=== PATIENT | female | born 1955 | race African-American/Black ===

== ENCOUNTER 2018-12-24 05:31 | Emergency (ER) | payer OTHER ==
[2018-12-24] MEDS ORDERED: IBUPROFEN 600 MG TABLET PO ONE (07:14)
--- NOTE | 2018-12-24 07:14 | ER Document Report ---
ED Extremity Problem, Lower - General Chief Complaint: Knee Injury Stated Complaint: LEFT KNEE INJURY Time Seen by Provider: 12/24/18 07:08 Primary Care Provider: YANELI HERNANDEZ MD [ACTIVE STAFF] - Follow up in 3-5 days TRAVEL OUTSIDE OF THE [place] IN LAST 30 DAYS: No - HPI Notes: Patient is a 63-year-old female that presents to the emergency department for chief complaint of left knee injury. Patient states just prior to coming to the ER she tripped over her foot and fell forward onto her left knee. She denies hitting her head or any lightheadedness and loss of consciousness. She states she did not fall on outstretched hands and all of her weight came down on her left knee. She states it is severely painful in the knee and is worse with any kind of movement or weightbearing. She denies relieving factors. She has not had any medication for pain. She denies history of surgery or injury on this knee previously. She denies any numbness. Past Medical History: Negative Past Surgical History: Hysterectomy Social History: Denies drugs alcohol and tobacco Family History: Reviewed and noncontributory for presenting illness Allergies: Reviewed, see documented allergy list. REVIEW OF SYSTEMS: CONSTITUTIONAL : No fever No chills No diaphoresis No recent illness EENT: No vision changes No congestion No sore throat CARDIOVASCULAR: No chest pain No palpitations RESPIRATORY: No shortness of breath No cough No difficulty breathing GASTROINTESTINAL: No abdominal pain No nausea No vomiting No diarrhea GENITOURINARY: No dysuria No hematuria No difficulty urinating MUSCULOSKELETAL: No back pain Left knee pain No arm pain SKIN: No rashes No lesions LYMPHATIC: No swollen, enlarged glands. NEUROLOGICAL: No lightheadedness No headache No weakness No paresthesias PSYCHIATRIC: No anxiety No depression PHYSICAL EXAMINATION: Vital signs reviewed, nursing noted reviewed. GENERAL: Well-appearing, well-nourished and in no acute distress. HEAD: Atraumatic, normocephalic. EYES: Eyes appear normal, extraocular movements intact, sclera anicteric, conjunctiva are normal. ENT: nares patent, oropharynx clear without exudates. Moist mucous membranes. NECK: Normal range of motion, supple without lymphadenopathy LUNGS: Breath sounds clear to auscultation bilaterally and equal. No wheezes rales or rhonchi. HEART: Regular rate and rhythm without murmurs ABDOMEN: Soft, nontender, normoactive bowel sounds. No rebound, guarding, or rigidity. No masses appreciated. EXTREMITIES: Large left knee effusion and soft tissue edema, tenderness to palpation over patella and quadriceps tendon. No patellar ligament tenderness. Decreased range of motion of the left knee. Pain and inability to extend left knee. No knee laxity. NEUROLOGICAL: No focal neurological deficits. Moves all extremities spontaneously Motor and sensory grossly intact on exam. PSYCH: Normal mood, normal affect. SKIN: Warm, Dry, normal turgor, small abrasion over the anterior left knee - Related Data Allergies/Adverse Reactions: No Known Allergies Allergy (Verified 12/24/18 07:38) Past Medical History - Social History Smoking Status: Never Smoker Family History: Reviewed & Not Pertinent Course - Re-evaluation Re-evalutation: 12/24/18 07:14 Vitals reviewed. Nursing notes reviewed. Patient given ibuprofen for pain. X- ray shows complete separation of patella with disruption of the extensor mechanism. We do not currently orthopedic surgery telephone cleaner however patient will be placed in a knee immobilizer and given crutches as well as orthopedic referral. She did not wish to have anything stronger than ibuprofen for pain in the emergency room but will be provided a Dutch John prescription for home. She was counseled on rest, ice, elevation and use of the crutches and brace. She has no other apparent injuries from her fall. She is stable at discharge 12/24/18 08:32 Knee X-Ray 12/24/18 05:34 IMPRESSION: Comminuted displaced patellar fracture. - Diagnostic Test Radiology reviewed: Image reviewed Discharge - Discharge Clinical Impression: Patellar fracture Qualifiers: Encounter type: initial encounter Fracture type: closed Fracture morphology: comminuted Fracture alignment: displaced Laterality: left Qualified Code(s): S82.042A - Displaced comminuted fracture of left patella, initial encounter for closed fracture Condition: Stable Disposition: HOME, SELF-CARE Instructions: Fractured Patella ([facility]), Ice & Elevation ([facility]), Knee Immobilizing Splint ([facility]) Additional Instructions: Please return to the emergency department if you have any worsening, or concern of your symptoms. Please return to the emergency department if you develop chest pain, difficulty breathing, severe abdominal pain, or ongoing vomiting. Please follow-up with your primary care physician in 2-3 days and any other recommended physicians. If prescribed, take all medications as directed. If you have any questions or concerns do not hesitate to return the emergency department for evaluation. Keep your left knee elevated as often as possible Apply ice to the left knee for 15 to 20 minutes at a time 3-4 times daily to help with swelling Take Tylenol and ibuprofen as needed for pain. If these medications are not enough to control your pain then take the prescription Dutch John Call the orthopedic surgeon first thing Wednesday morning to establish follow-up appointment Prescriptions: Hydrocodone/Acetaminophen [Dutch John 5-325 mg Tablet] 1 tab PO Q6 #10 tablet Referrals: YANELI HERNANDEZ MD [ACTIVE STAFF] - Follow up in 3-5 days
--- NOTE | 2018-12-24 08:21 | RADIOLOGY REPORT (SQ) ---
EXAM DESCRIPTION: KNEE LEFT 4 VIEW COMPLETED DATE/TIME: 12/24/2018 7:33 am REASON FOR STUDY: fall, pain, nonweight bearing COMPARISON: None. NUMBER OF VIEWS: Four views left knee LIMITATIONS: None. FINDINGS: Patellar fracture. Single large upper half fragment with comminution of the lower pole fr agments. Separation between the upper and lower poles of approximately 2 cm. Sizable joint effusion . Other bones intact. OTHER: No other significant finding. IMPRESSION: Comminuted displaced patellar fracture. TECHNICAL DOCUMENTATION: JOB ID: [id number] Reading location - IP/workstation name: [email or web address]
[2018-12-24 08:55] VITALS: BP 138/84
== END 2018-12-24 08:53 | disposition home or self-care (01) ==
LOC: ER 05:31
DX: S82.042A Displaced comminuted fracture of left patella, initial encounter for closed fracture (principal); W01.0XXA Fall on same level from slipping, tripping and stumbling without subsequent striking against object, initial encounter
CPT/HCPCS: 99283; 73564; L1830

== ENCOUNTER 2019-01-02 10:36 | Day surgery (SDC) | payer OTHER ==
[~2019-01-02 10:36] MED LIST: ACETAMINOPHEN 0 MG/0 ML RTUPB IV ONE; CEFAZOLIN 2 GM/D5W RTU 2 GM/50 ML RTUPB IV PRN; DEXAMETHASONE SOD PHOSPHATE INJ 4 MG/1 ML VIAL ONE; FENTANYL CITRATE INJ/PF 100 MCG/2 ML AMPUL ONE; HYDROMORPHONE HCL INJ/PF 2 MG/ML AMPULE ONE; MIDAZOLAM 2 MG/2 ML INJ ONE; ONDANSETRON HCL INJ/PF 4 MG/2 ML SDV ONE; PROPOFOL INJ 200 MG/20 ML VIAL IV ONE
[2019-01-02 11:19] LABS: AMORPHOUS SEDIMENT,URINE TRACE /HPF; APPEARANCE,URINE CLEAR; BILIRUBIN,URINE NEGATIVE (NEGATIVE); COLOR,URINE YELLOW; GLUCOSE, URINE NEGATIVE (NEGATIVE); KETONES,URINE NEGATIVE (NEGATIVE); LEUKOCYTE ESTERASE,URINE NEGATIVE (NEGATIVE); NITRITE,URINE NEGATIVE (NEGATIVE); PROTEIN,URINE NEGATIVE (NEGATIVE); URINE SPECIFIC GRAVITY 1.025; UROBILINOGEN,URINE NEGATIVE mg/dL (<2.0)
[2019-01-02 11:28] LABS: HEMATOCRIT 33.9 % (36.0-47.0); HEMOGLOBIN 11.1 g/dL (12.0-15.5); MEAN CORPUSCULAR HEMOGLOBIN 27.4 pg (27.0-33.4); MEAN CORPUSCULAR HGB CONC 32.8 g/dL (32.0-36.0); MEAN CORPUSCULAR VOLUME 83 fl (80-97); PLATELET COUNT 338 10^3/uL (150-450); RED BLOOD COUNT 4.07 10^6/uL (3.72-5.28); RED CELL DISTRIBUTION WIDTH 14.6 % (11.5-14.0); WHITE BLOOD COUNT 4.3 10^3/uL (4.0-10.5)
--- NOTE | 2019-01-02 11:30 | RADIOLOGY REPORT (SQ) ---
EXAM DESCRIPTION: CHEST SINGLE VIEW COMPLETED DATE/TIME: 01/02/2019 11:20 am REASON FOR STUDY: preop COMPARISON: None. EXAM PARAMETERS: NUMBER OF VIEWS: One view. TECHNIQUE: Single frontal radiographic view of the chest acquired. RADIATION DOSE: NA LIMITATIONS: None. FINDINGS: LUNGS AND PLEURA: No opacities, masses or pneumothorax. No pleural effusion. MEDIASTINUM AND HILAR STRUCTURES: No masses. Contour normal. HEART AND VASCULAR STRUCTURES: Heart normal in size. Normal vasculature. BONES: No acute findings. HARDWARE: None in the chest. OTHER: No other significant finding. IMPRESSION: NO ACUTE RADIOGRAPHIC FINDING IN THE CHEST. TECHNICAL DOCUMENTATION: JOB ID: [id number] [employer]- All Rights Reserved Reading location - IP/workstation name: [email or web address]
[2019-01-02 11:46] LABS: ANION GAP 10 (5-19); BLOOD UREA NITROGEN 20 mg/dL (7-20); CALCIUM 9.8 mg/dL (8.4-10.2); CARBON DIOXIDE 27 mmol/L (22-30); CHLORIDE 105 mmol/L (98-107); GLUCOSE 90 mg/dL (75-110); POTASSIUM 3.9 mmol/L (3.6-5.0); SODIUM 141.9 mmol/L (137-145)
[2019-01-02] MEDS ORDERED: CEFAZOLIN 2 GM/D5W RTU 2 GM/50 ML RTUPB IV ONE (11:46)
[2019-01-02] MEDS ORDERED: BUPIVACAINE HCL 0.25% /EPINEPHRINE INJ/PF 30 ML SDV ONE (12:44)
[2019-01-02] MEDS ORDERED: ONDANSETRON HCL INJ/PF 4 MG/2 ML SDV IV PRN (13:10)
[2019-01-02] MEDS ORDERED: OXYCODONE-ACETAMINOPHEN 5-325 MG TABLET PO PRN ×2 (13:10)
[2019-01-02] MEDS ORDERED: DIPHENHYDRAMINE HCL 50 MG/ML VIAL IV PRN (13:10)
[2019-01-02] MEDS ORDERED: MORPHINE SULFATE 10 MG/ML INJ IV PRN (13:10)
[2019-01-02] MEDS ORDERED: PROMETHAZINE HCL INJ 25 MG/1 ML VIAL IV PRN (13:10)
[2019-01-02] MEDS ORDERED: MEPERIDINE HCL/PF INJ 25 MG/1 ML DISP.SYRIN IV PRN (13:10)
[2019-01-02] MEDS ORDERED: FENTANYL CITRATE INJ/PF 100 MCG/2 ML AMPUL IV PRN ×2 (13:10)
[2019-01-02] MEDS ORDERED: KETOROLAC TROMETHAMINE 60 MG/2 ML SDV ONE (13:34)
--- NOTE | 2019-01-02 13:45 | Discharge Summary ---
Discharge Summary (SDC) - Discharge Final Diagnosis: Left patella fracture Date of Surgery: 01/02/19 Discharge Date: 01/02/19 Condition: Good Treatment or Instructions: Weightbearing as tolerated ambulation in the knee immobilizer. Keep the compressive wrap in place until Wednesday. This can need to be unwrapped or cut. Underneath is an OpSite dressing that can remain in place until you return to see me in the office. Prescriptions: Oxycodone HCl/Acetaminophen [Percocet 5-325 mg Tablet] 1 tab PO Q6 PRN #40 tab PRN Reason: Referrals: GAYATRI BOWMAN FNP [Primary Care Provider] - Discharge Diet: As Tolerated, Regular Respiratory Treatments at Home: Deep Breathing/Coughing Discharge Activity: Balance Activity w/Rest, No tub bath Home Care Assistance: None Needed Report the Following to Your Physician Immediately: Shortness of Breath, Fever over 101 Degrees, Drainage-Foul Smelling
--- NOTE | 2019-01-02 13:47 | Operative Report ---
Operative Report DATE OF SURGERY: 01/02/19 PREOPERATIVE DIAGNOSIS: Left patella fracture OPERATION: Open reduction internal fixation left patella fracture SURGEON: YANELI HERNANDEZ ANESTHESIA: GA ESTIMATED BLOOD LOSS: 25 PROCEDURE: With the patient supine and operative table left lower extremities prepped and draped in sterile fashion. Limb is elevated for exsanguination and tourniquet inflated to 280 torr. A longitudinal incision was made over the midline of the patella extending just proximally distally to the patella itself. The wound is irrigated and the hematoma is evacuated. Surprisingly there is a fairly substantial piece of bone distally and a decision was made to proceed with a ryxleu-cm-quxoj construct. 2.062 K wires were placed in parallel fashion distally to proximally. The fracture reduction is checked fluoroscopically and felt to be adequate. Subsequently #5 FiberWire was used to perform htqoqi-tu-qajbc retention suture. Subsequently a second #5 FiberWire was used in a circumferential fashion to bring in the comminuted bone fragments that are anterior and medial and lateral to the patella. #2 FiberWire was then used to repair the medial lateral retinaculum. The tourniquet is deflated. Hemostasis obtained with electrocautery. The wound was closed in layers interrupted Vicryl followed by dipti. A sterile compressive dressing and knee immobilizer appli ed and the patient's return to the PACU in satisfactory condition.
[2019-01-02] MEDS ORDERED: FENTANYL CITRATE INJ/PF 100 MCG/2 ML AMPUL ONE (14:15)
[2019-01-02] MEDS: FENTANYL CITRATE INJ/PF 100 MCG/2 ML AMPUL IV PRN ×2 (14:16→14:25)
--- NOTE | 2019-01-02 14:36 | RADIOLOGY REPORT (SQ) ---
EXAM DESCRIPTION: KNEE LEFT 2 VIEWS; NO CHG FLUORO COMPLETED DATE/TIME: 01/02/2019 2:14 pm REASON FOR STUDY: ORIF LEFT PATELLA S82.091D OTH FRACTURE OF RIGHT PATELLA, SUBS FOR CLOS FX W R COMPARISON: 12/24/2018. FLUOROSCOPY TIME: 0.2 minutes. 2 images saved to PACS. TECHNIQUE: Intra-operative images acquired during surgical procedure to evaluate progress. NUMBER OF IMAGES: 2 images. LIMITATIONS: None. FINDINGS: Images of the patella acquired during fixation. IMPRESSION: IMAGE(S) OBTAINED DURING PROCEDURE. COMMENT: Quality ID [id number]: Final reports for procedures using fluoroscopy that document radiation exp osure indices, or exposure time and number of fluorographic images (if radiation exposure indices are not available) Please consult full operative report of the attending physician for description of the procedure. TECHNICAL DOCUMENTATION: JOB ID: [id number] [employer]- All Rights Reserved Reading location - IP/workstation name: [email or web address]
--- NOTE | 2019-01-02 14:36 | RADIOLOGY REPORT (SQ) ---
EXAM DESCRIPTION: KNEE LEFT 2 VIEWS; NO CHG FLUORO COMPLETED DATE/TIME: 01/02/2019 2:14 pm REASON FOR STUDY: ORIF LEFT PATELLA S82.091D OTH FRACTURE OF RIGHT PATELLA, SUBS FOR CLOS FX W R COMPARISON: 12/24/2018. FLUOROSCOPY TIME: 0.2 minutes. 2 images saved to PACS. TECHNIQUE: Intra-operative images acquired during surgical procedure to evaluate progress. NUMBER OF IMAGES: 2 images. LIMITATIONS: None. FINDINGS: Images of the patella acquired during fixation. IMPRESSION: IMAGE(S) OBTAINED DURING PROCEDURE. COMMENT: Quality ID 145: Final reports for procedures using fluoroscopy that document radiation exp osure indices, or exposure time and number of fluorographic images (if radiation exposure indices are not available) Please consult full operative report of the attending physician for description of the procedure. TECHNICAL DOCUMENTATION: JOB ID: [id number] [employer]- All Rights Reserved Reading location - IP/workstation name: [email or web address]
[2019-01-02] MEDS ORDERED: ONDANSETRON 4 MG TAB.RAPDIS ONE (17:32)
[2019-01-02 18:43] VITALS: BP 137/88
--- NOTE | 2019-01-04 10:23 | EKG REPORT ---
SEVERITY:- ABNORMAL ECG - SINUS RHYTHM PROBABLE LEFT ATRIAL ABNORMALITY PROBABLE LEFT VENTRICULAR HYPERTROPHY : Confirmed by: Sanjay Adair 04-Jan-2019 10:23:00
== END 2019-01-02 18:35 | disposition home or self-care (01) ==
LOC: OROUT 10:36
PROVIDERS: ATTEND Orthopaedic Surgery
DX: S82.002A Unspecified fracture of left patella, initial encounter for closed fracture (principal); X58.XXXA Exposure to other specified factors, initial encounter; Z01.818 Encounter for other preprocedural examination
CPT/HCPCS: 36415; 85027; 80048; 81001; 71045; 73560; 93005; 93010; 27524; L1830; C1713; J2250; J3490; J1100; J1885; S0119; J3010; J1170; J2405; J2704; J0690; 01392; J0131

== ENCOUNTER 2019-04-28 21:53 | Emergency (ER) | payer OTHER ==
--- NOTE | 2019-04-28 23:03 | EKG REPORT ---
SEVERITY:- ABNORMAL ECG - SINUS RHYTHM PROBABLE LEFT ATRIAL ABNORMALITY LEFT VENTRICULAR HYPERTROPHY : Confirmed by: Brooklyn Cortes MD 28-Apr-2019 23:02:59
[2019-04-29] MEDS ORDERED: ASPIRIN 81 MG TABLET, CHEWABLE PO ONE (00:23)
[2019-04-29] MEDS ORDERED: ASPIRIN 81 MG TABLET, CHEWABLE ONE (00:28)
[2019-04-29 00:36] LABS: ABSOLUTE BASOPHILS # (AUTO) 0.1 10^3/uL (0.0-0.2); ABSOLUTE EOSINOPHILS # (AUTO) 0.1 10^3/uL (0.0-0.6); ABSOLUTE MONOCYTES (AUTO) 0.4 10^3/uL (0.1-1.4); ABSOLUTE NEUT (AUTO) 2.8 10^3/uL (1.7-8.2); BASOPHILS % (AUTO) 1.1 % (0-2); EOSINOPHILS % (AUTO) 1.6 % (0-6); HEMATOCRIT 37.2 % (36.0-47.0); HEMOGLOBIN 12.4 g/dL (12.0-15.5); LYMPHOCYTES % (AUTO) 36.4 % (13-45); MEAN CORPUSCULAR HEMOGLOBIN 27.6 pg (27.0-33.4); MEAN CORPUSCULAR HGB CONC 33.4 g/dL (32.0-36.0); MEAN CORPUSCULAR VOLUME 83 fl (80-97); MONOCYTES % (AUTO) 7.8 % (3-13); PLATELET COUNT 298 10^3/uL (150-450); RED CELL DISTRIBUTION WIDTH 14.6 % (11.5-14.0); SEGMENTED NEUTROPHILS % (AUTO) 53.1 % (42-78); TOTAL CELLS COUNTED % (AUTO) 100 %; WHITE BLOOD COUNT 5.4 10^3/uL (4.0-10.5)
--- NOTE | 2019-04-29 00:38 | ER Document Report ---
ED Cardiac <RADHA AVILEZ - Last Filed: 04/29/19 11:25> - General TRAVEL OUTSIDE OF THE [place] IN LAST 30 DAYS: No <YULY GALE - Last Filed: 04/29/19 15:39> - General Chief Complaint: Chest Pain Stated Complaint: BLOOD PRESSURE ISSUE Time Seen by Provider: 04/28/19 23:55 Primary Care Provider: GAYATRI BOWMAN FNP [NURSE PRACTITIONER] - Follow up as needed Notes: Patient is a 63-year-old female who presents the emergency department with a chief complaint of chest pain. She states that her pain started shortly prior to arrival to the emergency department. She was sleeping and and stated that she felt some tightness in her chest and in her throat. She states that she ate some greens and ate chicken tonight. She has not felt this ever before. She denies any past medical history other than knee surgery. Patient denies any past medical history. She denies any smoking. (YULY GALE) - Related Data Allergies/Adverse Reactions: No Known Allergies Allergy (Verified 12/24/18 07:38) Past Medical History - Social History Smoking Status: Never Smoker Frequency of alcohol use: None Drug Abuse: None Family History: Reviewed & Not Pertinent - Past Medical History Cardiac Medical History: Denies: Hx Coronary Artery Disease, Hx Heart Attack, Hx Hypertension Pulmonary Medical History: Denies: Hx Asthma, Hx Bronchitis, Hx COPD, Hx Pneumonia Neurological Medical History: Denies: Hx Cerebrovascular Accident, Hx Seizures Renal/ Medical History: Denies: Hx Peritoneal Dialysis Musculoskeletal Medical History: Denies Hx Arthritis - Immunizations Hx Diphtheria, Pertussis, Tetanus Vaccination: Yes <YULY GALE - Last Filed: 04/29/19 15:39> Review of Systems <YULY GALE - Last Filed: 04/29/19 15:39> - Review of Systems Notes: REVIEW OF SYSTEMS: CONSTITUTIONAL : Denies recent illness. Denies recent unintentional weight loss. Denies fever, chills, or sweats. EENT: Denies eye, ear, throat, or mouth pain, discharge, or symptoms. Denies nasal or sinus congestion. CARDIOVASCULAR: See HPI. RESPIRATORY: Denies shortness of breath, cough, congestion, difficulty breathing, or wheezing. GASTROINTESTINAL: Denies nausea, vomiting, and diarrhea. Denies abdominal pain. Denies constipation. GENITOURINARY: Denies difficulty urinating, burning, blood in urine, urgency or frequency. MUSCULOSKELETAL: Denies neck and back pain. Denies joint pain or swelling. SKIN: Denies rash, itchiness, or lesions HEMATOLOGIC : Denies easy bruising or bleeding. LYMPHATIC: Denies swollen, painful, enlarged glands. NEUROLOGICAL: Denies no numbness or tingling denies weakness. Denies headache. Denies altered mental status. Denies alteration in speech. PSYCHIATRIC: Denies stress, anxiety, alteration in sleep patterns, or depression. All other systems reviewed and negative. (YULY GALE) Physical Exam <YULY GALE - Last Filed: 04/29/19 15:39> - Vital signs Vitals: Temp Pulse Resp BP Pulse Ox 98.5 F 78 20 165/110 H 99 04/28/19 22:15 04/28/19 22:15 04/28/19 22:15 04/28/19 22:15 04/28/19 22:15 - Notes Notes: PHYSICAL EXAMINATION: GENERAL: Appears well, healthy, well-nourished, no acute distress. HEAD: Normocephalic, atraumatic. EYES: PERRL, conjunctiva normal, all extraocular movements intact, sclera nonicteric ENT: Moist mucous membranes. NECK: Supple, no noticeable swelling, redness, rash. Normal range of motion. LUNGS: Equal breath sounds bilaterally and clear to auscultation. No wheezes rales or rhonchi. CARDIOVASCULAR: S1-S2, regular rate, regular rhythm. Radial pulses 2+, normal. ABDOMEN: Normoactive bowel sounds. Soft, nontender, no guarding, no rebound tenderness, and no masses palpated. EXTREMITIES: Normal strength and range of motion, no pitting or edema. No cyanosis. NEUROLOGICAL: Moves all extremities upon command. Strength 5/5 in all extremities. PSYCH: Normal mood, normal affect. SKIN: Warm, dry. No rash, lesions, ulcerations noted. Normal skin turgor. (YULY GALE) Course - Laboratory Result Diagrams: 04/29/19 05:55 04/29/19 00:17 <RADHA AVILEZ - Last Filed: 04/29/19 11:25> - Laboratory Result Diagrams: 04/29/19 05:55 04/29/19 00:17 <YULY GALE - Last Filed: 04/29/19 15:39> - Re-evaluation Re-evalutation: 04/29/19 11:25 Patient's vital signs stable, patient stable for transfer at this time (RADHA AVILEZ) 04/29/19 02:05 Hematology is unremarkable at this time. Her chemistries are unremarkable. Her troponin is 0.105. Lipase is normal. Will await second troponin. Patient states that she does not have chest pain anymore. Chest x-ray was normal. No pneumothorax, cardiomegaly, or pneumonia noted. 04/29/19 05:20 Patient's second troponin is 0.286. Patient denies chest pain at this time. I spoke with Dr. Wahl the hospitalist and he is requesting that I speak with Dr. Cortes. I will call Dr. Cortes. 04/29/19 05:[address] Cortes, the surveillance technician and he is recommending transfer. 04/29/19 05:28 Spoke with [facility] transfer center. Awaiting call back from hospitalist. 04/29/19 05:40 Received a call back from Dr. Kohli. [facility]. 04/29/19 08:20 Bedside report given to Radha Avilez NP. She will evaluate the patient prior to transfer. Still remains chest pain-free. Heparin drip infusing at this time. (BALJINDERYULY Bola) - Vital Signs Vital signs: Temp Pulse Resp BP Pulse Ox 98.1 F 72 17 129/82 H 100 04/29/19 11:49 04/29/19 11:49 04/29/19 11:49 04/29/19 11:49 04/29/19 11:49 - Laboratory Laboratory results interpreted by me: 04/29/19 04/29/19 04/29/19 00:17 00:17 05:55 RDW 14.6 H 14.9 H Lymph % (Auto) 49.8 H Seg Neutrophils % 38.5 L Carbon Dioxide 31 H Urine Blood 04/29/19 05:55 RDW Lymph % (Auto) Seg Neutrophils % Carbon Dioxide Urine Blood SMALL H Discharge <RADHA AVILEZ - Last Filed: 04/29/19 11:25> <BALJINDERYULY M - Last Filed: 04/29/19 15:39> - Discharge Clinical Impression: NSTEMI (non-ST elevated myocardial infarction) Chest pain Qualifiers: Chest pain type: unspecified Qualified Code(s): R07.9 - Chest pain, unspecified Condition: Stable Disposition: [facility] Referrals: GAYATRI BOWMAN FNP [NURSE PRACTITIONER] - Follow up as needed
[2019-04-29 00:56] LABS: ALBUMIN 4.7 g/dL (3.5-5.0); ALKALINE PHOSPHATASE 66 U/L (38-126); ANION GAP 9 (5-19); ASPARTATE AMINO TRANSFERASE 21 U/L (14-36); BILIRUBIN,DIRECT 0.1 mg/dL (0.0-0.4); BILIRUBIN,TOTAL 0.4 mg/dL (0.2-1.3); BLOOD UREA NITROGEN 18 mg/dL (7-20); CALCIUM 9.9 mg/dL (8.4-10.2); CARBON DIOXIDE 31 mmol/L (22-30); CHLORIDE 102 mmol/L (98-107); CREATINE KINASE 58 U/L (30-135); GLUCOSE 100 mg/dL (75-110)
[2019-04-29 01:20] LABS: CREATINE KINASE MB 0.73 ng/mL (<4.55)
[2019-04-29 01:22] LABS: TROPONIN I 0.105 ng/mL
--- NOTE | 2019-04-29 01:24 | RADIOLOGY REPORT (SQ) ---
XR CHEST 2 VIEWS EXAM DATE: 04/29/2019 12:00 AM CDT HISTORY: Chest pain. COMPARISON: None. FINDINGS: The heart size is within normal limits. No consolidation, pleural effusion, or pneumothorax is seen. The bony thorax is intact. IMPRESSION: No evidence of acute cardiopulmonary disease.
[2019-04-29] MEDS ORDERED: HEPARIN SOD (PORCINE) 1,000 UNIT/ML 10 ML VIAL IV ONE (05:37)
[2019-04-29] MEDS ORDERED: HEPARIN SODIUM,PORCINE/D5W 25,000 UNIT/250 ML RTUINJ IV PRN (05:37)
[2019-04-29] MEDS ORDERED: HEPARIN SODIUM,PORCINE/D5W 25,000 UNIT/250 ML RTUINJ IV ONE (05:48)
[2019-04-29 06:13] LABS: ABSOLUTE BASOPHILS # (AUTO) 0.1 10^3/uL (0.0-0.2); ABSOLUTE EOSINOPHILS # (AUTO) 0.1 10^3/uL (0.0-0.6); ABSOLUTE LYMPHOCYTES (AUTO) 2.6 10^3/uL (0.5-4.7); ABSOLUTE MONOCYTES (AUTO) 0.4 10^3/uL (0.1-1.4); BASOPHILS % (AUTO) 1.1 % (0-2); EOSINOPHILS % (AUTO) 2.4 % (0-6); HEMATOCRIT 36.8 % (36.0-47.0); HEMOGLOBIN 12.1 g/dL (12.0-15.5); LYMPHOCYTES % (AUTO) 49.8 % (13-45); MEAN CORPUSCULAR HEMOGLOBIN 27.4 pg (27.0-33.4); MEAN CORPUSCULAR HGB CONC 32.9 g/dL (32.0-36.0); MEAN CORPUSCULAR VOLUME 83 fl (80-97); MONOCYTES % (AUTO) 8.2 % (3-13); PLATELET COUNT 324 10^3/uL (150-450); RED BLOOD COUNT 4.43 10^6/uL (3.72-5.28); RED CELL DISTRIBUTION WIDTH 14.9 % (11.5-14.0); SEGMENTED NEUTROPHILS % (AUTO) 38.5 % (42-78); TOTAL CELLS COUNTED % (AUTO) 100 %; WHITE BLOOD COUNT 5.3 10^3/uL (4.0-10.5)
[2019-04-29 06:18] LABS: APPEARANCE,URINE CLEAR; BILIRUBIN,URINE NEGATIVE (NEGATIVE); COLOR,URINE STRAW; GLUCOSE, URINE NEGATIVE (NEGATIVE); KETONES,URINE NEGATIVE (NEGATIVE); LEUKOCYTE ESTERASE,URINE NEGATIVE (NEGATIVE); NITRITE,URINE NEGATIVE (NEGATIVE); PROTEIN,URINE NEGATIVE (NEGATIVE); URINE SPECIFIC GRAVITY 1.012; UROBILINOGEN,URINE NEGATIVE mg/dL (<2.0)
[2019-04-29 06:23] LABS: INTERNATIONAL RATION (INR) 1.04; PARTIAL THROMBOPLASTIN TIME 29.5 SEC (23.5-35.8); PROTHROMBIN TIME 13.6 SEC (11.4-15.4)
[2019-04-29] MEDS ORDERED: HEPARIN SOD (PORCINE) 1,000 UNIT/ML 10 ML VIAL IV PRN (08:37)
[2019-04-29 11:52] VITALS: BP 129/82
--- NOTE | 2019-04-29 19:42 | EKG REPORT ---
SEVERITY:- ABNORMAL ECG - SINUS RHYTHM LEFT ATRIAL ABNORMALITY PROBABLE LEFT VENTRICULAR HYPERTROPHY : Confirmed by: Brooklyn Cortes MD 29-Apr-2019 19:41:17
== END 2019-04-29 11:28 | disposition short-term general hospital (02) ==
LOC: ER 04-29 01:23
DX: I21.4 Non-ST elevation (NSTEMI) myocardial infarction (principal); R07.89 Other chest pain
CPT/HCPCS: 93005 ×2; 96376; 99285; 96365; 96366; 36415; 82553; 82550; 83690; 85025; 85610; 85730; 80053; 81001; 84484; 71046; 93010 ×2; J1644 ×2

== ENCOUNTER → 2019-08-29 | Outpatient (CLI) | payer MEDICARE, OTHER ==
--- NOTE | 2019-08-29 18:00 | WOMENS IMAGING REPORT ---
EXAM DESCRIPTION: BONE DENSITY HIP/SPINE COMPLETED DATE/TIME: 08/29/2019 3:25 pm REASON FOR STUDY: Z78.0 BONE DENSITY Z12.31 ENCNTR SCREEN MAMMOGRAM FOR MALIGNANT NEOPLASM OF MIKE Z 78.0 ASYMPTOMATIC MENOPAUSAL STATE COMPARISON: None. TECHNIQUE: Dual-Energy X-ray Absorptiometry (DEXA) of the AP Spine and Hip. LIMITATIONS: None. FINDINGS: LUMBAR SPINE: The bone mineral density (BMD) measured from L1-L4 in the AP projection correlates with a T-score of -3.5, which is osteoporotic as defined by the World Health Organization. BMD Change vs Baseline: N/A HIP: The bone mineral density (BMD) measured in the left femoral neck at the hip correlates with a T-score of -3.2, which is osteoporotic as defined by the World Health Organization. BMD Change vs Baseline: N/A 10 year Fracture Risk Assessment: Major Osteoporotic Fracture: Not available. Hip Fracture: Not available. IMPRESSION: 1. LUMBAR SPINE WHO CLASSIFICATION: Osteoporotic 2. HIP WHO CLASSIFICATION: Osteoporotic OVERALL ASSESSMENT: WHO CLASSIFICATION: Osteoporotic COMMENT: The World Health Organization defines low BMD as follows: T-score: Normal: Greater than -1.0 Osteopenia: Between -1.0 and -2.5 Osteoporosis: Less than -2.5 without fractures Established osteoporosis: Less than -2.5 with fractures In general, you may wish to consider: Diagnosis Treatment Follow-up DEXA Normal BMD Prevention 2-3 years Osteopenia Prevention/Therapy 1-2 years Osteoporosis Therapy Yearly TECHNICAL DOCUMENTATION: JOB ID: [id number] [employer]- All Rights Reserved Reading location - IP/workstation name: [email or web address]
--- NOTE | 2019-08-30 11:11 | WOMENS IMAGING REPORT ---
EXAM DESCRIPTION: 3D SCREENING MAMMO BILAT COMPLETED DATE/TIME: 08/29/2019 3:25 pm REASON FOR STUDY: Z12.31 SCREENING MAMMO Z12.31 ENCNTR SCREEN MAMMOGRAM FOR MALIGNANT NEOPLASM OF B RE Z78.0 ASYMPTOMATIC MENOPAUSAL STATE COMPARISON: No prior films, the most recent mammograms in this patient were 10 years ago EXAM PARAMETERS: Views: Standard craniocaudal and mediolateral oblique views of each breast recorded using digital acquisition and breast tomosynthesis. Read with the assistance of CAD. .[facility] - [employer] Acting Professor Version 9.2 LIMITATIONS: None. FINDINGS: No suspicious masses, suspicious calcifications or architectural distortion. No areas of c oncern. IMPRESSION: NEGATIVE MAMMOGRAM. BIRADS 1. BREAST DENSITY: b. There are scattered areas of fibroglandular density. BIRAD: ASSESSMENT: 1 NEGATIVE RECOMMENDATION: ROUTINE SCREENING Please continue yearly bilateral screening mammography/tomosynthesis in August 2020 COMMENT: The patient has been notified of the results by letter per MQSA requirements. Additional no tification policies are in place for contacting patient with suspicious or incomplete findings. Quality ID #[id number]: The [employer] recommends an annual screening mammogram for women aged 40 years or over. This facility utilizes a reminder system to ensure that all patients receive reminder letters, and/or direct phone calls for appointments. This includes reminders for routine scr eening mammograms, diagnostic mammograms, or other Breast Imaging Interventions when appropriate. Th is patient will be placed in the appropriate reminder system. TECHNICAL DOCUMENTATION: FINDING NUMBER: (1) ASSESSMENT: (1) JOB ID: [id number]- All Rights Reserved Reading location - IP/workstation name: [email or web address]
== END ==
LOC: WI 14:00
PROVIDERS: ATTEND Family Medicine
DX: Z12.31 Encounter for screening mammogram for malignant neoplasm of breast (principal); Z78.0 Asymptomatic menopausal state
CPT/HCPCS: 77063; 77067; 77080

== ENCOUNTER 2020-03-21 06:54 | Day surgery (SDC) | payer MEDICARE, OTHER ==
[~2020-03-21 06:54] MED LIST changes: -ACETAMINOPHEN 0 MG/0 ML RTUPB IV ONE; +BESIFLOXACIN HCL 0.6% OPH SUSP 5 ML BOTTLE OS PRN; +BUPIVACAINE HCL 0.75% INJ/PF (7.5 MG/1 ML) 10 ML SDV OS PRN; -CEFAZOLIN 2 GM/D5W RTU 2 GM/50 ML RTUPB IV PRN; +CYCLOPENTOLATE 0.2%/PHENYLEPHRINE 1% OPH SOLN 2 ML OS PRN; -DEXAMETHASONE SOD PHOSPHATE INJ 4 MG/1 ML VIAL ONE; +DORZOLAMIDE HCL 2%/TIMOLOL MALEAT 0.5% OPH SOLN 10 ML OS PRN; -FENTANYL CITRATE INJ/PF 100 MCG/2 ML AMPUL ONE; -HYDROMORPHONE HCL INJ/PF 2 MG/ML AMPULE ONE; +KETOROLAC TROMETHAMINE 0.45% 4 DROP/0.4 ML DROPERETTE OS PRN; +LIDOCAINE 4% INJ/PF (40 MG/ML) 5 ML AMPUL OS PRN; -MIDAZOLAM 2 MG/2 ML INJ ONE; -ONDANSETRON HCL INJ/PF 4 MG/2 ML SDV ONE; -PROPOFOL INJ 200 MG/20 ML VIAL IV ONE; +TETRACAINE HCL 0.5% OPH SOLN 4 ML OS PRN; +TROPICAMIDE 1% OPH SOLN 15 ML OS PRN
[2020-03-21] MEDS ORDERED: EPINEPHRINE INJ/PF 1 MG/1 ML AMPULE ONE (07:01)
[2020-03-21] MEDS ORDERED: LIDOCAINE 1% INJ-PF (10 MG/ML) 30 ML SDV ONE (07:01)
[2020-03-21] MEDS ORDERED: CHONDR SU A NA/HYALUR INTRAOC KIT (SURGICARE) ONE (07:01)
[2020-03-21] MEDS: BESIFLOXACIN HCL 0.6% OPH SUSP 5 ML BOTTLE OS PRN ×3 (07:05→08:03)
[2020-03-21] MEDS: CYCLOPENTOLATE 0.2%/PHENYLEPHRINE 1% OPH SOLN 2 ML OS PRN ×3 (07:05→07:25)
[2020-03-21] MEDS: TETRACAINE HCL 0.5% OPH SOLN 4 ML OS PRN ×3 (07:05→07:48)
[2020-03-21] MEDS: TROPICAMIDE 1% OPH SOLN 15 ML OS PRN ×3 (07:05→07:25)
[2020-03-21] MEDS ORDERED: MIDAZOLAM 2 MG/2 ML INJ ONE (07:18)
[2020-03-21] MEDS ORDERED: FENTANYL CITRATE INJ/PF 100 MCG/2 ML AMPUL ONE (07:18)
--- NOTE | 2020-03-21 09:40 | Operative Report ---
Operative Report-[facility] Operative Report: DATE OF SURGERY: 03/21/2020 PREOPERATIVE DIAGNOSIS: CATARACT, LEFT EYE. POSTOPERATIVE DIAGNOSIS: CATARACT, LEFT EYE. PROCEDURE PERFORMED: PHACOEMULSIFICATION WITH POSTERIOR CHAMBER INTRAOCULAR LENS, LEFT EYE. Intraocular Lens Model : MX60E 19.0 Total Phaco Time: 4.46 CDE SURGEON: NIKKY BARRETO MD ANESTHESIA: TOPICAL WITH MAC. INDICATIONS FOR SURGERY: Difficultly driving at night PROCEDURE: The patient was brought to the Operating Room and placed on the operative table. Following tetracaine drops, topical anesthesia was administered. This consisted of instrument wipe pledgets soaked in a solution of 4% Xylocaine mixed with 0.75% Marcaine in a 1:2 ratio. A 2 x 1 cm pledget was placed in the superior fornix. A 1 x 1 cm pledget was placed in the inferior fornix. The eye was patched shut for 5 minutes. The patch was removed. The eye was sterilely prepped and draped in the usual manner. Lid speculum was placed in the eye. The pledgets were removed. 4-0 black silk sutures were placed around the superior and the inferior rectus muscles to be used as traction. A conjunctival peritomy was made at the 10 o'clock position. Hemostasis was obtained with bipolar cautery. A posterior limbal groove was created using a crescent knife and dissected anteriorly towards the cornea. A sharp point blade was used to create a paracentesis site at the 2 o'clock position. 0.2 cc non preserved Lidocaine was injected into the anterior chamber. A 2.4 mm keratome was used to enter the anterior chamber through the groove. Viscoelastic was injected into the anterior chamber. An anterior capsulotomy was performed using Utrata forceps in a capsulorrhexis fashion. Hydrodissection and hydrodelineation were performed. Phacoemulsification was performed in [id number] technique. Following this, the I/A unit was used to remove residual cortex. Viscoelastic was injected into the capsular bag. The Intraocular lens was placed in the capsular bag. The I/A unit was used to remove residual viscoelastic. The wound was seen to be watertight under high and low pressure, and no sutures were placed. The intraocular lens was well centered. The pressure was adjusted in the eye to normal pressure. The 4-0 black silk sutures and lid speculum were removed. The eye was shielded after Besivance,prednisolone, and Cosopt drops were placed. The patient tolerated the procedure well and was sent to the Recovery Room in good condition.
== END 2020-03-21 08:40 ==
LOC: SC 06:54
PROVIDERS: ATTEND Ophthalmology
DX: H25.813 Combined forms of age-related cataract, bilateral (principal); I10 Essential (primary) hypertension; Z79.899 Other long term (current) drug therapy; H04.123 Dry eye syndrome of bilateral lacrimal glands; H43.813 Vitreous degeneration, bilateral; D31.31 Benign neoplasm of right choroid
CPT/HCPCS: 66984; 00142; V2632; J2250; J3490 ×5; A9270; J0171; J3010; 142

== ENCOUNTER 2020-04-09 08:34 | Day surgery (SDC) | payer MEDICARE, OTHER ==
[~2020-04-09 08:34] MED LIST changes: -BESIFLOXACIN HCL 0.6% OPH SUSP 5 ML BOTTLE OS PRN; -BUPIVACAINE HCL 0.75% INJ/PF (7.5 MG/1 ML) 10 ML SDV OS PRN; -CYCLOPENTOLATE 0.2%/PHENYLEPHRINE 1% OPH SOLN 2 ML OS PRN; -DORZOLAMIDE HCL 2%/TIMOLOL MALEAT 0.5% OPH SOLN 10 ML OS PRN; +FENTANYL CITRATE INJ/PF 100 MCG/2 ML AMPUL ONE; +KETOROLAC TROMETHAMINE 0.45% 4 DROP/0.4 ML DROPERETTE OD PRN; -KETOROLAC TROMETHAMINE 0.45% 4 DROP/0.4 ML DROPERETTE OS PRN; -LIDOCAINE 4% INJ/PF (40 MG/ML) 5 ML AMPUL OS PRN; +MIDAZOLAM 2 MG/2 ML INJ ONE; +PREDNISOLONE ACETATE 1% OPH SUSP 5 ML OD PRN; -TETRACAINE HCL 0.5% OPH SOLN 4 ML OS PRN; -TROPICAMIDE 1% OPH SOLN 15 ML OS PRN
[2020-04-09] MEDS: TETRACAINE HCL 0.5% OPH SOLN 4 ML OD PRN ×4 (08:51→09:10)
[2020-04-09] MEDS: BESIFLOXACIN HCL 0.6% OPH SUSP 5 ML BOTTLE OD PRN ×4 (08:52→09:39)
[2020-04-09] MEDS: TROPICAMIDE 1% OPH SOLN 15 ML OD PRN ×3 (08:52→09:01)
[2020-04-09] MEDS: CYCLOPENTOLATE 0.2%/PHENYLEPHRINE 1% OPH SOLN 2 ML OD PRN ×3 (08:52→09:01)
[2020-04-09] MEDS: BUPIVACAINE HCL 0.75% INJ/PF (7.5 MG/1 ML) 10 ML SDV OD PRN ×2 (09:15)
[2020-04-09] MEDS: LIDOCAINE 4% INJ/PF (40 MG/ML) 5 ML AMPUL OD PRN ×2 (09:15)
[2020-04-09] MEDS: EPINEPHRINE INJ/PF 1 MG/1 ML AMPULE ONE ×2 (09:26)
[2020-04-09] MEDS: CHONDR SU A NA/HYALUR INTRAOC KIT (SURGICARE) ONE ×2 (09:26)
[2020-04-09] MEDS: LIDOCAINE 1% INJ-PF (10 MG/ML) 30 ML SDV ONE ×2 (09:26)
[2020-04-09] MEDS: DORZOLAMIDE HCL 2%/TIMOLOL MALEAT 0.5% OPH SOLN 10 ML OD PRN ×2 (09:39)
--- NOTE | 2020-04-09 12:17 | Operative Report ---
Operative Report-[facility] Operative Report: DATE OF SURGERY: 04/09/2020 PREOPERATIVE DIAGNOSIS: CATARACT, RIGHT EYE. POSTOPERATIVE DIAGNOSIS: CATARACT, RIGHT EYE. PROCEDURE PERFORMED: PHACOEMULSIFICATION WITH POSTERIOR CHAMBER INTRAOCULAR LENS, RIGHT EYE. Intraocular Lens Model : MX60E 21.0 Total Phaco Time: 4.49 CDE SURGEON: NIKKY BARRETO MD ANESTHESIA: TOPICAL WITH MAC. INDICATIONS FOR SURGERY: Difficulty reading small print and sewing. PROCEDURE: The patient was brought to the Operating Room and placed on the operative table. Following tetracaine drops, topical anesthesia was administered. This consisted of instrument wipe pledgets soaked in a solution of 4% Xylocaine mixed with 0.75% Marcaine in a 1:2 ratio. A 2 x 1 cm pledget was placed in the superior fornix. A 1 x 1 cm pledget was placed in the inferior fornix. The eye was patched shut for 5 minutes. The patch was removed. The eye was sterilely prepped and draped in the usual manner. Lid speculum was placed in the eye. The pledgets were removed. 4-0 black silk sutures were placed around the superior and the inferior rectus muscles to be used as traction. A conjunctival peritomy was made at the 10 o'clock position. Hemostasis was obtained with bipolar cautery. A posterior limbal groove was created using a crescent knife and dissected anteriorly towards the cornea. A sharp point blade was used to create a paracentesis site at the 2 o'clock position. 0.2 cc non preserved Lidocaine was injected into the anterior chamber. A 2.4 mm keratome was used to enter the ante rior chamber through the groove. Viscoelastic was injected into the anterior chamber. An anterior capsulotomy was performed using Utrata forceps in a capsulorrhexis fashion. Hydrodissection and hydrodelineation were performed. Phacoemulsification was performed in [id number] technique. Following this, the I/A unit was used to remove residual cortex. Viscoelastic was injected into the capsular bag. The Intraocular lens was placed in the capsular bag. The I/A unit was used to remove residual viscoelastic. The wound was seen to be watertight under high and low pressure, and no sutures were placed. The intraocular lens was well centered. The pressure was adjusted in the eye to normal pressure. The 4-0 black silk sutures and lid speculum were removed. The eye was shielded after Besivance. prednisolone, and Cosopt drops were placed. The patient tolerated the procedure well and was sent to the Recovery Room in good condition.
== END 2020-04-09 10:11 | disposition home or self-care (01) ==
LOC: SC 08:34
PROVIDERS: ATTEND Ophthalmology
DX: H25.811 Combined forms of age-related cataract, right eye (principal); Z96.1 Presence of intraocular lens; I10 Essential (primary) hypertension
CPT/HCPCS: 66984; V2632; J2250; J3490 ×5; A9270; J0171; J3010; 142